=== PATIENT | female | born 1995 | race Caucasian/White ===

== ENCOUNTER → 2018-04-03 | Outpatient (CLI) | payer OTHER | LOC: M SMT 13:12 | DX: Z34.81 Encounter for supervision of other normal pregnancy, first trimester (principal); Z36.89 Encounter for other specified antenatal screening; Z3A.19 19 weeks gestation of pregnancy | CPT/HCPCS: 76811 ==

== ENCOUNTER → 2018-05-23 | Outpatient (CLI) | payer OTHER ==
[2018-05-23 18:59] LABS: GLUCOSE CHALLENGE TEST 1 HOUR 89 MG/DL (LESS THAN 140)
[2018-05-23 19:14] LABS: BASO % 0.3 % (0.0-1.0); EOS # 0.1 10^3/uL (0.0-0.50); EOS % 0.7 % (0.0-3.0); HEMOGLOBIN 12.2 g/dl (12.0-15.5); IMMATURE GRANULOCYTE % 0.8 % (0-3.0); LYMPH # 1.5 10^3/uL (1.5-6.5); LYMPH % 11.1 % (24.0-44.0); MEAN CORPUSCULAR HEMOGLOBIN 30.7 pg (27.0-33.0); MEAN CORPUSCULAR VOLUME 93.2 fl (80.0-96.0); MONO # 0.6 10^3/uL (0.0-0.8); MONO % 4.3 % (0.0-5.0); NEUTROPHILS # 10.9 10^3/uL (1.8-7.7); NEUTROPHILS % 82.8 % (36.0-66.0); PLATELET COUNT, AUTOMATED 194 10^3/uL (150-450); RED BLOOD COUNT 3.97 10^6/uL (4.00-5.40); RED CELL DISTRIBUTION WIDTH 12.5 % (11.5-14.5); WHITE BLOOD COUNT 13.2 10^3/uL (4.0-10.0)
== END ==
LOC: M SMT 13:55
DX: Z34.82 Encounter for supervision of other normal pregnancy, second trimester (principal)
CPT/HCPCS: 82950

== ENCOUNTER → 2018-08-03 | Outpatient (REF) | payer OTHER | LOC: M LAB REF 17:17 | DX: Z34.83 Encounter for supervision of other normal pregnancy, third trimester (principal) ==

== ENCOUNTER 2018-08-20 15:37 | Inpatient (IN) | payer OTHER ==
[2018-08-20 16:55] LABS: HEMATOCRIT 35.1 % (36.0-47.0); HEMOGLOBIN 11.7 g/dl (12.0-15.5); MEAN CORPUSCULAR HEMOGLOBIN 29.5 pg (27.0-33.0); MEAN CORPUSCULAR HGB CONC 33.3 g/dl (32.0-36.5); MEAN CORPUSCULAR VOLUME 88.6 fl (80.0-96.0); PLATELET COUNT, AUTOMATED 216 10^3/uL (150-450); RED BLOOD COUNT 3.96 10^6/uL (4.00-5.40); RED CELL DISTRIBUTION WIDTH 13.2 % (11.5-14.5); WHITE BLOOD COUNT 12.2 10^3/uL (4.0-10.0)
[2018-08-20] MEDS: miSOPROStol 50 MCG 1/2 TAB (S0191) SL (17:40)
[2018-08-20] MEDS ORDERED: TERBUTALINE SULFATE 1 MG/ML VIAL (J3105) As Ordered (18:47)
[2018-08-20] MEDS: TERBUTALINE SULFATE 1 MG/ML VIAL (J3105) SC (18:51)
[2018-08-20] MEDS: LR 1,000 ML IV (22:21)
[2018-08-20] MEDS: PENICILLIN G POTASSIUM IV 5 MU in D5W MINI-BAG PLUS 100 ML IV (22:21)
[2018-08-20] MEDS: OXYTOCIN DRIP 30 UNITS in APPROPRIATE DILUENT 1 EA IV (22:22)
[2018-08-21] MEDS: PROMETHAZINE INJ 25 MG/ML VIAL (J2550) IV (02:05)
[2018-08-21] MEDS: BUTORPHANOL 2 MG/ML INJ (J0595) IV (02:07)
[2018-08-21] MEDS: LR 1,000 ML IV ×3 (02:07→12:51)
[2018-08-21] MEDS: PENICILLIN G POTASSIUM IV 2.5 MU in APPROPRIATE DILUENT 1 EA IV ×3 (02:35→10:27)
[2018-08-21] MEDS ORDERED: FENTANYL 2MCG/ML ROPIVACAINE 0.2% IN 0.9% NACL 200ML IVBAG As Ordered (05:34)
[2018-08-21] MEDS: FENTANYL/ROPIVACAINE/NACL BAG 200 ML EPIDURAL (06:28)
[2018-08-21 14:01] LABS: CORD GAS ABE A -0.3; CORD GAS HCO3 A 29.1 MEQ/L; CORD GAS O2 SAT A 17.7 %; CORD GAS PCO2 A 67.8 mmHg; CORD GAS PO2 A 13.9 mmHg; CORD GAS SBC A 22.1 MEQ/L; CORD GAS TCO2 A 31.1 MEQ/L
[2018-08-21 14:02] LABS: CORD GAS ABE V -1.8; CORD GAS HCO3 V 22.6 MEQ/L; CORD GAS O2 SAT V 73.2 %; CORD GAS PCO2 V 38.1 mmHg; CORD GAS PH V 7.392 UNITS; CORD GAS PO2 V 30.5 mmHg; CORD GAS SBC V 22.3 MEQ/L; CORD GAS TCO2 V 23.8 MEQ/L
[2018-08-21] MEDS ORDERED: OXYTOCIN DRIP 30 UNITS in APPROPRIATE DILUENT 1 EA IV (14:09)
[2018-08-21] MEDS ORDERED: NALOXONE INJ 0.4 MG/1 ML VIAL (J2310) IV (14:15)
[2018-08-21] MEDS ORDERED: EPIDURAL COMMENT XX (14:15)
[2018-08-21] MEDS ORDERED: ACETAMINOPHEN 500 MG TAB PO (14:15)
[2018-08-21] MEDS ORDERED: diphenhydrAMINE INJ 50MG/ML VIAL (J1200) IV (14:15)
[2018-08-21] MEDS ORDERED: DOCUSATE SODIUM 100 MG CAP PO (14:15)
[2018-08-21] MEDS ORDERED: EPIDURAL/PCA KEYS XX (14:15)
[2018-08-21] MEDS ORDERED: MOM 30ML SUSPENSION UDC PO (14:15)
[2018-08-21] MEDS ORDERED: ANUSOL HC CREAM 30GM TOP (14:15)
[2018-08-21] MEDS ORDERED: METHYLERGONOVINE MALEATE 0.2 MG TAB PO (14:15)
[2018-08-21] MEDS ORDERED: RHOGAM 300 MCG (1500 IU) INJ (J2790) IM (14:15)
[2018-08-21] MEDS ORDERED: REFRIGERATOR IV KEYS XX (14:15)
[2018-08-21] MEDS ORDERED: DIBUCAINE 1% OINTMENT 30GM TOP (14:15)
[2018-08-21] MEDS ORDERED: LACTATED RINGER'S 1000 ML IV (14:15)
[2018-08-21] MEDS ORDERED: MEASLES,MUMPS,RUBELLA VACCINE INJ (MMR-II) (90707) SC (14:15)
[2018-08-21] MEDS ORDERED: ePHEDrine SULFATE 25 MG/5 ML(5MG/ML) SYRINGE IV (14:15)
[2018-08-21] MEDS ORDERED: ONDANSETRON 4MG/2ML VIAL (J2405) IV (14:15)
[2018-08-22] MEDS: PRENATAL VITAMINS CHEWABLE TABLET PO (10:11)
[2018-08-23] MEDS: IBUPROFEN 800 MG TAB PO (04:57)
[2018-08-23] MEDS: PRENATAL VITAMINS CHEWABLE TABLET PO (09:30)
== END 2018-08-23 11:45 | disposition home or self-care (01) | DRG 560 ==
LOC: M LDI 15:37 → M OBS 08-21 16:02
PROVIDERS: Advanced Practice Midwife
PROC: 10907ZC Drainage of Amniotic Fluid, Therapeutic from Products of Conception, Via Natural or Artificial Opening (ICD-10-PCS; 2018-08-20)
PROC: 3E033VJ Introduction of Other Hormone into Peripheral Vein, Percutaneous Approach (ICD-10-PCS; 2018-08-20)
PROC: 10E0XZZ Delivery of Products of Conception, External Approach (ICD-10-PCS; principal; 2018-08-21)
DX: O69.82X0 Labor and delivery complicated by other cord entanglement, without compression, not applicable or unspecified (principal); Z37.0 Single live birth; Z3A.39 39 weeks gestation of pregnancy

== ENCOUNTER → 2021-12-07 | Outpatient (CLI) | payer OTHER ==
[~2021-12-07] MED LIST: IBUP-1114 PO; MAPA500T2 PO; PRENTAB9 PO
== END ==
LOC: M PLALAB 11:44
PROVIDERS: ATTEND Specialist
DX: Z34.01 Encounter for supervision of normal first pregnancy, first trimester (principal)

== ENCOUNTER → 2022-02-28 | Outpatient (CLI) | payer OTHER | LOC: M WHC 14:02 | PROVIDERS: ATTEND Obstetrics & Gynecology | DX: Z34.92 Encounter for supervision of normal pregnancy, unspecified, second trimester (principal); Z3A.17 17 weeks gestation of pregnancy ==

== ENCOUNTER → 2022-05-03 | Outpatient (CLI) | payer OTHER ==
[2022-05-03 15:33] LABS: HEMATOCRIT 32.1 % (36.0-47.0); HEMOGLOBIN 10.6 g/dl (12.0-15.5); MEAN CORPUSCULAR HEMOGLOBIN 31.3 pg (27.0-33.0); MEAN CORPUSCULAR VOLUME 94.7 fl (80.0-96.0); PLATELET COUNT, AUTOMATED 189 10^3/uL (150-450); RED BLOOD COUNT 3.39 10^6/uL (4.00-5.40); WHITE BLOOD COUNT 18.2 10^3/uL (4.0-10.0)
== END ==
LOC: M PLALAB 12:09
PROVIDERS: ATTEND Obstetrics & Gynecology
DX: Z34.92 Encounter for supervision of normal pregnancy, unspecified, second trimester (principal); Z3A.00 Weeks of gestation of pregnancy not specified

== ENCOUNTER → 2022-06-16 | Outpatient (REF) | payer OTHER | LOC: M SFHCWAGY 13:05 | PROVIDERS: ATTEND Specialist | DX: Z36.85 Encounter for antenatal screening for Streptococcus B (principal) ==

== ENCOUNTER 2022-07-17 12:49 | Inpatient (IN) | payer OTHER ==
[~2022-07-17] VITALS: Ht 160 cm; Wt 68.5 kg
[2022-07-17] VITALS (31 sets, daily range): BP systolic 80–130; BP diastolic 47–74
[2022-07-17] MEDS ORDERED: miSOPROStol 50MCG 1/2 TABLET SL SCH (14:15)
[2022-07-17 14:34] LABS: HEMATOCRIT 29.7 % (36.0-47.0); HEMOGLOBIN 9.6 g/dl (12.0-15.5); MEAN CORPUSCULAR HEMOGLOBIN 29.4 pg (27.0-33.0); MEAN CORPUSCULAR HGB CONC 32.3 g/dl (32.0-36.5); MEAN CORPUSCULAR VOLUME 90.8 fl (80.0-96.0); PLATELET COUNT, AUTOMATED 339 10^3/uL (150-450); RED BLOOD COUNT 3.27 10^6/uL (4.00-5.40); WHITE BLOOD COUNT 16.9 10^3/uL (4.0-10.0)
[2022-07-17] MEDS ORDERED: LR 1,000 ML IV SCH (19:30)
[2022-07-17] MEDS ORDERED: OXYTOCIN DRIP 30 UNITS in IV 1 EA IV SCH (19:30)
[2022-07-17] MEDS ORDERED: FENTANYL 2MCG/ML ROPIVACAINE 0.2% IN 0.9% NACL 100ML IVBAG As Ordered ONE (20:57)
[2022-07-17] MEDS ORDERED: LR 500 ML IV PRN (21:00)
[2022-07-17] MEDS ORDERED: NALOXONE INJ 0.4MG/1ML VIAL (J2310 PER 1MG) IV PRN (21:00)
[2022-07-17] MEDS ORDERED: ONDANSETRON 4MG 2ML VIAL IV PRN (21:00)
[2022-07-17] MEDS ORDERED: diphenhydrAMINE 50MG/ML VIAL (J1200) IV PRN (21:00)
[2022-07-17] MEDS ORDERED: EPIDURAL/PCA KEYS XX PRN (21:00)
[2022-07-17] MEDS ORDERED: FENTANYL/ROPIVACAINE/NACL BAG 100 ML EPIDURAL SCH (21:00)
[2022-07-17] MEDS ORDERED: ePHEDrine SULFATE 25 MG/5 ML(5MG/ML) SYRINGE IVP PRN (21:00)
[2022-07-18] VITALS (22 sets, daily range): BP systolic 87–135; BP diastolic 53–83
[2022-07-18] MEDS ORDERED: METHYLERGONOVINE MALEATE 0.2 MG TAB PO PRN (03:25)
[2022-07-18] MEDS ORDERED: IBUPROFEN 600MG TAB PO PRN (03:25)
[2022-07-18] MEDS ORDERED: IBUPROFEN 800 MG TAB PO PRN (03:25)
[2022-07-18] MEDS ORDERED: DOCUSATE SODIUM 100MG CAPSULE PO PRN (03:25)
[2022-07-18] MEDS ORDERED: OXYTOCIN DRIP 30 UNITS in IV 1 EA IV ONE (03:25)
[2022-07-18] MEDS ORDERED: DIBUCAINE 1% OINTMENT 30GM TOP PRN (03:25)
[2022-07-18] MEDS ORDERED: RHOGAM 300 MCG (1500 IU) INJ (J2790) IM SCH (03:25)
[2022-07-18] MEDS ORDERED: ACETAMINOPHEN TAB 650MG DOSE (2X325MG) PO PRN (03:25)
[2022-07-18] MEDS ORDERED: ACETAMINOPHEN 500 MG TAB PO PRN (03:25)
[2022-07-18] MEDS: PRENATAL VITAMINS CHEWABLE TABLET PO SCH (07:38)
[2022-07-19 07:00] VITALS: BP 110/50
[2022-07-19] MEDS: PRENATAL VITAMINS CHEWABLE TABLET PO SCH (08:03)
[2022-07-19] MEDS ORDERED: ACET-683 PO (17:17)
[2022-07-19] MEDS ORDERED: COLA100C5 PO (17:17)
[2022-07-19] MEDS ORDERED: IBUP-1022 PO (17:17)
[2022-07-20] MEDS ORDERED: MEASLES,MUMPS,RUBELLA VACCINE INJ (MMR-II) (90707) SC.IMMUN ONE (09:00)
== END 2022-07-19 18:30 | disposition home or self-care (01) | DRG 560 ==
LOC: M LDI 12:49 → OBSVTOIN 14:09 → M OBS 07-18 05:57
PROVIDERS: ADMIT Specialist; ATTEND Specialist
PROC: 3E033VJ Introduction of Other Hormone into Peripheral Vein, Percutaneous Approach (ICD-10-PCS; 2022-07-17)
PROC: 3E0DXGC Introduction of Other Therapeutic Substance into Mouth and Pharynx, External Approach (ICD-10-PCS; 2022-07-17)
PROC: 10E0XZZ Delivery of Products of Conception, External Approach (ICD-10-PCS; principal; 2022-07-18)
PROC: 10907ZC Drainage of Amniotic Fluid, Therapeutic from Products of Conception, Via Natural or Artificial Opening (ICD-10-PCS; 2022-07-18)
DX: O48.0 Post-term pregnancy (principal); Z37.0 Single live birth; Z3A.40 40 weeks gestation of pregnancy

== ENCOUNTER 2023-01-31 10:44 | Day surgery (SDC) | payer OTHER ==
[~2023-01-31] VITALS: Ht 160 cm; Wt 54.5 kg
[~2023-01-31 10:44] MED LIST changes: +ACET-683 PO; +COLA100C5 PO; +IBUP-1022 PO; +LIDOCAINE 2% 100MG/5ML SDV (FOR ANES.) As Ordered ONE; +MIDAZOLAM INJ 2MG/2ML VIAL As Ordered ONE; +ROCURONIUM BROMIDE 50MG/5ML VIAL As Ordered ONE; +fentaNYL 250 MCG/5 ML INJECTION As Ordered ONE; +propofoL 200 MG/20 ML VIAL As Ordered ONE
[2023-01-31 11:13] LABS: HEMOGLOBIN 12.3 g/dl (12.0-15.5); MEAN CORPUSCULAR HEMOGLOBIN 28.3 pg (27.0-33.0); MEAN CORPUSCULAR HGB CONC 32.4 g/dl (32.0-36.5); MEAN CORPUSCULAR VOLUME 87.4 fl (80.0-96.0); PLATELET COUNT, AUTOMATED 273 10^3/uL (150-450); RED BLOOD COUNT 4.35 10^6/uL (4.00-5.40); WHITE BLOOD COUNT 4.6 10^3/uL (4.0-10.0)
[2023-01-31] MEDS ORDERED: LR 1,000 ML IV SCH ×4 (11:15→14:15)
[2023-01-31] MEDS ORDERED: BUPIVACAINE HCL 0.25% 10ML VIAL As Ordered ONE (12:09)
[2023-01-31] MEDS ORDERED: ACETAMINOPHEN 1000MG 100ML IV BAG As Ordered ONE (12:40)
[2023-01-31] MEDS ORDERED: SUGAMMADEX SODIUM 500 MG/5 ML VIAL (BRIDION) As Ordered ONE (12:57)
[2023-01-31] MEDS ORDERED: ONDANSETRON 4MG 2ML VIAL As Ordered ONE (12:57)
[2023-01-31] MEDS ORDERED: KETOROLAC 60MG 2ML VIAL As Ordered ONE (12:57)
[2023-01-31] MEDS ORDERED: ONDANSETRON 4MG 2ML VIAL IV PRN ×2 (13:05→13:20)
[2023-01-31] MEDS ORDERED: HYDROMORPHONE HCL 0.5 MG/ 0.5 ML SYRINGE IV PRN ×2 (13:05→13:20)
[2023-01-31] MEDS ORDERED: fentaNYL 100 MCG/2 ML INJECTION IV PRN ×2 (13:05→13:20)
[2023-01-31] MEDS ORDERED: oxyCODONE 5MG TAB PO PRN (13:20)
[2023-01-31 14:09] VITALS: BP 108/61
[2023-01-31] MEDS ORDERED: PERCOCET 5MG/325MG TAB PO PRN (14:15)
[2023-01-31] MEDS ORDERED: IBUP-1022 PO (14:25)
[2023-01-31] MEDS ORDERED: OXYC1TAB23 PO (14:26)
== END 2023-01-31 14:14 | disposition home or self-care (01) ==
LOC: M SDC 10:44
PROVIDERS: ATTEND Specialist
DX: Z30.2 Encounter for sterilization (principal)
CPT/HCPCS: 36415; 58661; 81025; 85027; 88302; J0131; J1100; J1885; J2250; J2405; J3010

== ENCOUNTER → 2023-09-06 | Outpatient (REF) | payer OTHER ==
[~2023-09-06] MED LIST changes: -LIDOCAINE 2% 100MG/5ML SDV (FOR ANES.) As Ordered ONE; -MIDAZOLAM INJ 2MG/2ML VIAL As Ordered ONE; +OXYC1TAB23 PO; -ROCURONIUM BROMIDE 50MG/5ML VIAL As Ordered ONE; -fentaNYL 250 MCG/5 ML INJECTION As Ordered ONE; -propofoL 200 MG/20 ML VIAL As Ordered ONE
== END ==
LOC: M SFHCWAGY 17:29
PROVIDERS: ATTEND Nurse Practitioner Family
DX: N39.0 Urinary tract infection, site not specified (principal)